=== PATIENT | male | born 1980 | race Caucasian/White ===

== ENCOUNTER 2020-07-06 15:36 | Emergency (ER) | payer MEDICAID ==
[~2020-07-06] VITALS: Ht 165.1 cm; Wt 70.3 kg
[2020-07-06 15:56] VITALS: BP 131/91
--- NOTE | 2020-07-06 16:00 | NUR ---
PT TAKEN TO CHAIR Mariya.
[2020-07-06] MEDS ORDERED: KETOROLAC 60 MG/2 ML VIAL IM ONE (16:25)
--- NOTE | 2020-07-06 16:25 | NUR ---
40/M C/O UPPER BACK PAIN & NECK PAIN AFTERING CARRYING BRANCHES WEIGHING APPROX 50-60 LBS, LIFTED THEM BEHIND HIS NECK/UPPER BACK. HX NONE RX NONE
--- NOTE | 2020-07-06 17:36 | NUR ---
Patient discharged with v/s stable. Written and verbal after care instructions given and explained. Patient alert, oriented and verbalized understanding of instructions. Ambulatory with steady gait. All questions addressed prior to discharge. ID band removed. Patient advised to follow up with PMD. Rx of Robaxin and Naprosyn given. Patient educated on indication of medication including possible reaction and side effects. Opportunity to ask questions provided and answered.
[2020-07-06 17:37] VITALS: BP 109/66
== END 2020-07-06 17:36 | disposition home or self-care (01) ==
LOC: MED 15:36
DX: S16.1XXA Strain of muscle, fascia and tendon at neck level, initial encounter (principal); X50.0XXA Overexertion from strenuous movement or load, initial encounter; Y93.89 Activity, other specified; Y92.89 Other specified places as the place of occurrence of the external cause; Y99.8 Other external cause status
CPT/HCPCS: 72050; 96372; 99283; J1885